=== PATIENT | female | born 1960 | race Caucasian/White ===

== ENCOUNTER 2017-05-12 09:16 | Emergency (ER) | payer OTHER ==
[~2017-05-12] VITALS: Ht 175.3 cm; Wt 113.0 kg
[2017-05-12 09:18] VITALS: BP 183/92; PULSE 78; RESP 20; TEMP 98.1; O2SAT 98
[2017-05-12] MEDS ORDERED: SYNT112T PO (10:47)
--- NOTE | 2017-05-12 11:07 | PD ---
HPI Chief Complaint: Flank/Kidney Pain Time Seen by Provider: 10:47 Travel History International Travel<30 days: Yes Contact w/Intl Traveler<30days: Yes Name of Country Traveled to: [facility] Traveled to known affect area: No History of Present Illness HPI This 56-year-old female is complaining of low back pain. She is having pain in the lower back that radiates around to both sides. He says this started last Friday but was not too bad it got progressively worse. There is no history of injury. She tried to sleep on a recliner and trouble sleeping. She has taken Advil without much response. There is no history of trauma or falls. She does not have any numbness, weakness or tingling in her legs. She says the pain is worse when she lays flat. There has not been any dysuria. PFSH Past Medical History Thyroid Disease: Yes Tetanus Vaccination: > 5 Years Influenza Vaccination: Yes ?: Not Menopausal: Yes Past Surgical History Section: Yes Eye Surgery: Yes (DETACHED RETNA) Social History Alcohol Use: Yes (SOCIAL) Tobacco Use: No Substance Use: No Allergies-Medications (Allergen,Severity, Reaction): Coded Allergies: Penicillins (Verified Allergy, Unknown, RASH, 05/12/17) ampicillin (Verified Allergy, Unknown, RASH, 05/12/17) Sulfa (Sulfonamide Antibiotics) (Verified Adverse Reaction, Unknown, VOMITING, 05/12/17) Reported Meds & Prescriptions Reported Meds & Active Scripts Active Reported Synthroid (Levothyroxine Sodium) 112 Mcg Tab 112 Mcg PO DAILY Review of Systems General / Constitutional: No: Fever, Chills Eyes: No: Diploplia, Blurred Vision HENT: No: Headaches, Vertigo Cardiovascular: No: Chest Pain or Discomfort, Palpitations Respiratory: No: Cough, Shortness of Breath Gastrointestinal: No: Vomiting, Diarrhea Musculoskeletal: Positive: Myalgias, Pain Skin: No Rash Neurologic: No: Focal Abnormalities Hematologic/Lymphatic: No: Easy Bruising Physical Exam Narrative GENERAL: Well-developed female SKIN: Focused skin assessment warm/dry. HEAD: Atraumatic. Normocephalic. EYES: Pupils equal and round. No scleral icterus. No injection or drainage. ENT: No nasal bleeding or discharge. Mucous membranes pink and moist. NECK: Trachea midline. No JVD. GASTROINTESTINAL: Abdomen soft, non-tender, nondistended. Hepatic and splenic margins not palpable. MUSCULOSKELETAL: No obvious deformities. No clubbing. No cyanosis. No edema. There is some tenderness of the lower back. There is no swelling warmth or erythema. He does have pain with any movement. NEUROLOGICAL: Awake and alert. No obvious cranial nerve deficits. Motor grossly within normal limits. Normal speech. There is good strength in plantar and dorsiflexion of the feet. Sensation of the feet is intact PSYCHIATRIC: Appropriate mood and affect; insight and judgment normal. Data Data Last Documented VS Vital Signs Date Time Temp Pulse Resp B/P (MAP) Pulse Ox O2 Delivery O2 Flow Rate FiO2 05/12/17 13:50 67 16 158/91 (113) 97 Room Air 05/12/17 09:18 98.1 Orders Orders Urinalysis - C+S If Indicated (05/12/17 11:01) Spine, Lumbar - Ltd (Ap & Lat) (05/12/17 11:01) Ct Lumb Spine W/O Contrast (05/12/17 12:38) Acetamin-Hydrocod 325-5 Mg ([place] 5-325 (05/12/17 12:45) Labs Laboratory Tests Test 05/12/17 11:10 Urine Color YELLOW Urine Turbidity CLEAR Urine pH 6.0 Urine Specific [place] 1.015 Urine Protein NEG mg/dL Urine Glucose (UA) NEG mg/dL Urine Ketones NEG mg/dL Urine Occult Blood NEG Urine Nitrite NEG Urine Bilirubin NEG Urine Leukocyte Esterase NEG Urine RBC 0-3 /hpf Urine WBC 0-2 /hpf Urine Bacteria RARE /hpf Microscopic Urinalysis Comment CULT NOT INDICATED MDM Medical Decision Making Medical Screen Exam Complete: Yes Emergency Medical Condition: Yes Medical Record Reviewed: Yes Differential Diagnosis Differential includes UTI, musculoskeletal back pain, fracture Narrative Course Urine is negative for infection. Plain films lumbar spine were done and is noted that she has abnormal pedicles at L5. CT lumbar spine without contrast is recommended and has been ordered. CT was done. The pedicle of L5 are intact there is some facet hypertrophy which is thought to have explained the abnormal appearance on plain film. There is a prominent 2-3 cm Bryson type cyst in the left side of the upper sacrum. There is spinal canal and neural foramina are adequate at all lumbar levels area impression is musculoskeletal back pain. I will prescribe some Lortab as ibuprofen has not been helpful. Diagnosis Primary Impression: Musculoskeletal back pain Scripts Hydrocodone-Acetaminophen (Lortab) 7.5-325 Mg Tab 1 TAB PO Q4H Y for PAIN, #20 TAB 0 Refills Prov: Carlos Esteban MD 05/12/17 Disposition: 01 DISCHARGE HOME Condition: Stable Carlos Esteban MD May 12, 2017 11:07
[2017-05-12 11:15] LABS: BLOOD, URINE NEG (NEG); GLUCOSE,URINE NEG (NEG); KETONE, URINE NEG (NEG); NITRITE,URINE NEG (NEG)
[2017-05-12 11:22] LABS: URINE COLOR YELLOW (YELLW/STRAW)
[2017-05-12 11:23] LABS: BACTERIA, URINE RARE /hpf; COMMENT (UR) CULT NOT INDICATED; CULTURE IF INDICATED CULT NOT INDICATED; RBC, URINE 0-3 /hpf (0-3); WBC, URINE 0-2 /hpf (0-5)
--- NOTE | 2017-05-12 11:42 | RADRPT ---
EXAM DATE/TIME: 05/12/2017 11:17 [facility] COMPARISON: No previous studies available for comparison. INDICATIONS : Back pain with no known injury MEDICAL HISTORY : None. SURGICAL HISTORY : None. ENCOUNTER: Initial ACUITY: 1 week PAIN SCORE: 10/10 LOCATION: Lumbar spine FINDINGS: There abnormal pedicles at L5. There is good preservation of vertebral body and disc space heights. CONCLUSION: Abnormal pedicles at L5. CT scan lumbar spine without contrast would be of benefit. Oral Villa MD FACR on May 12, 2017 at 11:38 Board Certified Radiologist. This report was verified electronically.
[2017-05-12] MEDS ORDERED: ACETAMINOPHEN/HYDROcodone 325 MG/5 MG TAB PO ONE (12:45)
--- NOTE | 2017-05-12 13:38 | RADRPT ---
EXAM DATE/TIME: 05/12/2017 12:56 [facility] COMPARISON: SPINE LUMBAR LTD (AP & LAT), May 12, 2017, 11:17. INDICATIONS : Bilateral flank and back pain radiating down lower back. No injury. Abnormal lumbar xray. RADIATION DOSE: 40.20 CTDIvol (mGy) MEDICAL HISTORY : None SURGICAL HISTORY : section. ENCOUNTER: Initial ACUITY: 1 week PAIN SCALE: 9/10 LOCATION: spine TECHNIQUE: Volumetric scanning of the lumbar spine was performed. Multiplanar reconstructions in the sagittal, coronal and oblique axial planes were performed. Using automated exposure control and adjustment of the mA and/or kV according to patient size, radiation dose was kept as low as reasonably achievable t o obtain optimal diagnostic quality images. DICOM format image data is available electronically for review and comparison. FINDINGS: Sagittal and coronal reconstructions show preservation of vertebral body and disc heights throughout. Minimal marginal spurring at T10-11. Spinal canal is patent however, a well-circumscribed soft tissu e density measuring 2.0 x 2.9 x 2.8 cm in the left side of the upper sacrum has associated bony remod eling and is characteristic of a prominent Tarlov type cyst. Osseous structures are otherwise intact. There is some facet hypertrophy bilaterally at L5-S1. T12-L1: The thecal sac has a normal diameter. No evidence of disc bulge or protrusion. The neural foramina are patent bilaterally. L1-L2: The thecal sac has a normal diameter. No evidence of disc bulge or protrusion. The neural foramina are patent bilaterally. L2-L3: The thecal sac has a normal diameter. No evidence of disc bulge or protrusion. The neural foramina are patent bilaterally. L3-L4: The thecal sac has a normal diameter. No evidence of disc bulge or protrusion. The neural foramina are patent bilaterally. L4-L5: The thecal sac has a normal diameter. No evidence of disc bulge or protrusion. The neural foramina are patent bilaterally. L5-S1: The thecal sac has a normal diameter. No evidence of disc bulge or protrusion. The neural foramina are patent bilaterally. CONCLUSION: 1. Pedicles of L5 are intact. However, there is some facet hypertrophy bilaterally, right greater roger n left. I believe this explains the abnormal appearance on plain film. 2. 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 3. Spinal canal and neural foramina appear to be adequate at all lumbar levels. Ryan Paige MD on May 12, 2017 at 13:29 Board Certified Radiologist. This report was verified electronically.
[2017-05-12 13:50] VITALS: BP 158/91; PULSE 67; RESP 16; O2SAT 97
[2017-05-12] MEDS ORDERED: HYDR-3534 PO (14:05)
== END 2017-05-12 14:16 | disposition home or self-care (01) ==
LOC: PHED 09:16
DX: M54.5 Low back pain (principal); E07.9 Disorder of thyroid, unspecified
CPT/HCPCS: 72100; 72131; 81001; 99285